=== PATIENT | female | born 1985 | race Hispanic/Latino ===

== ENCOUNTER 2019-10-28 14:29 | Emergency (ER) | payer SELFPAY ==
[2019-10-28] MEDS ORDERED: lisinopriL 20 MG TAB ONE (15:08)
[2019-10-28 15:45] VITALS: BP 195/122; O2SAT 100
--- NOTE | 2019-10-29 19:03 | EDPHYS ---
Physician Documentation [facility] Name: Marshal Barcenas Age: 34 yrs Sex: Female : 1985 Arrival Date: 10/28/2019 Time: 14:31 Bed 5 Private MD: ED Physician Melchor Diaz HPI: 10/27 15:00 This 34 yrs old Female presents to ER via EMS with complaints of High Blood kdr Pressure. 15:00 The patient has elevated blood pressure and discovered this at home, The patient states kdr that she can feel when her BP is elevated and she has been off of her meds for unknown length of time. She called EMS due to her concerns about elevated BP. Onset: The symptoms/episode began/occurred at an unknown time. Modifying factors: The symptoms are aggravated by Unknown, The symptoms are alleviated by Nothing. Associated signs and symptoms: The patient has no apparent associated signs or symptoms. Severity of symptoms: At its worst the blood pressure was severe, just prior to arrival, 210 mm Hg, in the emergency department the blood pressure is unchanged. Lonstanding. Historical: - Allergies: 14:34 Pain meds; sv 14:34 Lexapro; sv - Home Meds: 14:34 lisinopril 20 mg Oral tab twice a day [Active]; sv - PMHx: 14:34 Hypertension; Anxiety; Depression; Bipolar disorder; sv - Immunization history:: Adult Immunizations. - Social history:: Smoking status: . ROS: 15:18 Constitutional: Negative for fever, chills, and weight loss, Eyes: Negative for injury, kdr pain, redness, and discharge, Neck: Negative for injury, pain, and swelling, Cardiovascular: Negative for chest pain, palpitations, and edema, Respiratory: Negative for shortness of breath, cough, wheezing, and pleuritic chest pain, Abdomen/GI: Negative for abdominal pain, nausea, vomiting, diarrhea, and constipation, Back: Negative for injury and pain, : Negative for injury, bleeding, discharge, and swelling, MS/Extremity: Negative for injury and deformity, Skin: Negative for injury, rash, and discoloration, Neuro: Negative for headache, weakness, numbness, tingling, and seizure activity. Psych: Negative for depression, anxiety, suicide ideation, homicidal ideation, and hallucinations, Allergy/Immunology: Negative for hives, rash, and allergies, Endocrine: Negative for neck swelling, polydipsia, polyuria, polyphagia, and marked weight changes, Hematologic/Lymphatic: Negative for swollen nodes, abnormal bleeding, and unusual bruising. Exam: 15:18 Constitutional: This is a well developed, well nourished patient who is awake, alert, kdr and in mild distress. Head/Face: Normocephalic, atraumatic. Eyes: Pupils equal round and reactive to light, extra-ocular motions intact. Lids and lashes normal. Conjunctiva and sclera are non-icteric and not injected. Cornea within normal limits. Periorbital areas with no swelling, redness, or edema. Neck: Trachea midline, no thyromegaly or masses palpated, and no cervical lymphadenopathy. Supple, full range of motion without nuchal rigidity, or vertebral point tenderness. No Meningismus. Chest/axilla: Normal chest wall appearance and motion. Nontender with no deformity. No lesions are appreciated. Cardiovascular: Regular rate and rhythm with a normal S1 and S2. No gallops, murmurs, or rubs. Normal PMI, no JVD. No pulse deficits. Respiratory: Lungs have equal breath sounds bilaterally, clear to auscultation and percussion. No rales, rhonchi or wheezes noted. No increased work of breathing, no retractions or nasal flaring. Abdomen/GI: Soft, non-tender, with normal bowel sounds. No distension or tympany. No guarding or rebound. No evidence of tenderness throughout. Back: No spinal tenderness. No costovertebral tenderness. Full range of motion. Skin: Warm, dry with normal turgor. Normal color with no rashes, no lesions, and no evidence of cellulitis. MS/ Extremity: Pulses equal, no cyanosis. Neurovascular intact. Full, normal range of motion. Neuro: Awake and alert, GCS 15, oriented to person, place, time, and situation. Cranial nerves II-XII grossly intact. Motor strength 5/5 in all extremities. Sensory grossly intact. Cerebellar exam normal. Normal gait. 15:18 Psych: Behavior/mood is pleasant, cooperative, anxious, Affect is animated, Oriented to person, place, time, Patient has no thoughts/intents to harm self or others. Judgement / Insight is Delusions/hallucinations are not present. Vital Signs: 14:24 BP 201 / 130; Pulse 93; Resp 16; Temp 98.4; Pulse Ox 100% ; sv 15:15 BP 195 / 122; Pulse 96; Resp 18; Pulse Ox 100% ; sv MDM: 15:18 Data reviewed: vital signs, nurses notes, lab test result(s). Counseling: I had a kdr detailed discussion with the patient and/or guardian regarding: the historical points, exam findings, and any diagnostic results supporting the discharge/admit diagnosis, lab results, the need for outpatient follow up. 15:43 Patient medically screened. kdr Administered Medications: 15:07 Drug: Lisinopril 20 mg Route: PO; sv 15:29 Follow up: Response: No adverse reaction sv Disposition: 15:43 . Co-signature as Attending Physician, Melchor Diaz MD. kdr Disposition: 10/28/19 15:28 Patient left the facility after being seen by provider. - Patient left due to other. Signatures: Dispatcher [employer] Myah Fuchs RN RN sv Rittger, Kevin, MD MD kdr
--- NOTE | 2019-10-29 19:03 | ER ---
Nurse's Notes [facility] Name: Marshal Barcenas Age: 34 yrs Sex: Female : 1985 Arrival Date: 10/28/2019 Time: 14:31 Bed 5 Private MD: Diagnosis: Presentation: 10/27 14:24 Chief complaint: EMS states: HTN since this morning, pt reports that she got a little sv upset this morning with her roommate. Pt is here visiting and did not bring enough meds down here to take. BP 196/96 HR-96 RR-18 97% RA. Coronavirus screen: Proceed with normal triage. Patient denies a cough. Patient denies shortness of breath or difficulty breathing. Patient denies measured and/or subjective temperature greater than 100.4F prior to today's visit. Patient denies travel on a cruise ship or to a country the [facility] currently lists as an affected area. Patient denies contact with known and/or suspected case of COVID-19. Ebola Screen: No symptoms or risks identified at this time. Initial Sepsis Screen: Does the patient meet any 2 criteria? HR > 90 bpm. No. Patient's initial sepsis screen is negative. Does the patient have a suspected source of infection? No. Patient's initial sepsis screen is negative. Risk Assessment: Do you want to hurt yourself or someone else? Patient reports no desire to harm self or others. Onset of symptoms was October 28, 2019. 14:24 Method Of Arrival: EMS: [facility] sv 14:24 Acuity: JOVAN 3 sv Triage Assessment: 14:34 General: Appears in no apparent distress. comfortable, well developed, Behavior is sv cooperative, appropriate for age, anxious. Pain: Denies pain. Neuro: Level of Consciousness is awake, alert, obeys commands, Oriented to person, place, time, situation, Moves all extremities. Full function Gait is steady. Respiratory: Airway is patent Respiratory effort is even, unlabored, Respiratory pattern is regular, symmetrical. Derm: Skin is intact, Skin is pink, warm \\T\\ dry. Historical: - Allergies: 14:34 Pain meds; sv 14:34 Lexapro; sv - Home Meds: 14:34 lisinopril 20 mg Oral tab twice a day [Active]; sv - PMHx: 14:34 Hypertension; Anxiety; Depression; Bipolar disorder; sv - Immunization history:: Adult Immunizations. - Social history:: Smoking status: . Screenin:35 Abuse screen: Denies threats or abuse. Denies injuries from another. Nutritional sv screening: No deficits noted. Tuberculosis screening: No symptoms or risk factors identified. Fall Risk None identified. Assessment: 15:08 Reassessment: Went in to the room to get an IV started, blood drawn, and to give sv medication. Pt stated that she didn't want her blood or IV done right now "because I know it's going to make my blood pressure go up and I'm nervous and I need to calm down. I don't even know what's going on right now." Informed pt of the POC but pt kept insisting that she doesn't want her blood drawn right now. Pt also wanted the monitor to be turned off because "I keep looking at the numbers and it's making my blood pressure go up even higher." Informed pt that I would turn it on when I needed to get her BP again. Pt stated "Ok.". 15:13 Reassessment: Pt pushed the call harmon. Went in to the room. Pt stated "Has my blood sv pressure gone down any." Informed pt that I could recheck it right now for her. Pt stated "Well why haven't you already rechecked it? You know what I want to leave. Aren't you supposed to keep checking my blood pressure all the time?" Informed pt that we could check it as many times as she wants. Pt insistent on wanting to leave. Informed Tanvi GARCIAcharge entry clerk nurse and Dr Diaz. Vital Signs: 14:24 BP 201 / 130; Pulse 93; Resp 16; Temp 98.4; Pulse Ox 100% ; sv 15:15 BP 195 / 122; Pulse 96; Resp 18; Pulse Ox 100% ; sv ED Course: 14:31 Patient arrived in ED. sv 14:31 Myah Mercado RN is Primary Nurse. sv 14:31 Melchor Diaz MD is Attending Physician. kdr 14:33 Triage completed. sv 14:34 Arm band placed on. sv 14:35 Awaiting ED provider evaluation. sv 14:35 Patient has correct armband on for positive identification. Bed in low position. Call sv light in reach. Pulse ox on. NIBP on. Door closed. Head of bed elevated. 14:44 ED physician to see patient. sv 15:26 No provider procedures requiring assistance completed. Patient did not have IV access sv during this emergency room visit. Administered Medications: 15:07 Drug: Lisinopril 20 mg Route: PO; sv 15:29 Follow up: Response: No adverse reaction sv Outcome: 15:26 Eloped from patient exam room, after seeing physician Time discovered patient gone: September at 15:28 15:26 Condition: stable 15:28 Patient left the ED. sv Signatures: Myah Mercado RN RN sv Melchor Diaz MD MD [facility] Corrections: (The following items were deleted from the chart) 15:21 15:08 Reassessment: Went in to the room to get an IV started, blood drawn, and to give sv medication. Pt stated that she didn't want her blood or IV done right now "because I know it's going to make my blood pressure go up and I'm nervous and I need to calm down. I don't even know what's going on right now." Informed pt of the POC but pt kept insisting that she doesn't want her blood drawn right now. Pt also wanted the monitor to be turned off because "I keep looking at the numbers and it's making my blood pressure go up even higher." sv
== END 2019-10-28 15:28 | disposition left against medical advice (07) ==
LOC: ER 14:29
DX: I10 Essential (primary) hypertension (principal); Z88.5 Allergy status to narcotic agent
CPT/HCPCS: 99283